=== PATIENT | female | born 1945 | race Caucasian/White ===

== ENCOUNTER 2018-06-08 11:45 | Day surgery (SDC) | payer MEDICARE, OTHER, SELFPAY ==
--- NOTE | 2018-06-05 14:42 | PCM.HP.BLA ---
History and Physical Date of Admission: 06/05/18 HISTORY AND PHYSICAL ? Sabine Hendricks V 1945 ? REFERRING PHYSICIAN: ??Melinda Blanco MD ? CHIEF COMPLAINT: ??Consult (Colonscopy consult) ? HPI: The patient is a 72 year old female referred for endoscopy. ?Sabine notes no history of colon complaints.??She denies any change in bowel habits, weight changes, blood in stools, black tarry stools or abdominal pain. ?She denies any family history of colon cancer. ? The patient?notes a past history of H. Pylori. ?She notes occasional GERD and some dysphagia, particularly with high-fiber foods. ?Denies nausea, vomiting, changes in bowel habits, blood in stools or dark stools. ? Sabine?has??undergone prior endoscopy, most recently was during a hospitalization in 2007 for suspected GI bleed. ?We do not currently have access to those records. ?Patient states this was shortly after she was diagnosed with and treated for H. Pylori infection. ?She denies any findings of polyps on colonoscopy. ? The patient is being seen by me today at the request of ?for my opinion and advice regarding screening colonoscopy.?Patient's past medical history is significant for history of sick sinus syndrome now with pacemaker in place, states last pacer check approximately 10 months ago. ?Follows with Dr. Cai at [place]. ?Other medical history significant for irritable bowel syndrome, fibromyalgia, polymyalgia rheumatica, degenerative disc disease. ?Patient denies any chest pain, shortness of breath or recent hospitalizations. ?Denies problems with sedation in the past. ? ? PAST?MEDICAL?HISTORY PAST MEDICAL HISTORY Diagnosis Date ? Acute gastritis without mention of hemorrhage ? ? Diverticulosis of colon (without mention of hemorrhage) ? ? Diverticulum of esophagus, acquired ? ? Hemorrhage of gastrointestinal tract, unspecified ? ? History of sick sinus syndrome ? ? doing well after pacemaker ? Internal hemorrhoids without mention of complication ? ? Irritable bowel syndrome ? ? Polymyalgia rheumatica (HCC) ? ? S/P placement of cardiac pacemaker ? ? 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 ? PAST?SURGICAL?HISTORY PAST SURGICAL HISTORY Procedure Laterality Date ? BACK SURGERY HX ? 2011 ? L3-L5 ? COLONOSCOP W/ OR W/O [facility] SPEC ? 06/21/2005 ? Colonoscopy ? COLONOSCOP W/ OR W/O [facility] SPEC ? 11/10/07 ? [facility] inpt ? EGD W/O [facility] SPECIMEN W/BX ? 11/10/07 ? [facility] inpt ???H-pylori is negative ? HEMORRHOIDECT INTER/EXTER SIMP ? 1977 ? PAST SURGICAL HISTORY OF ? 02/03/13 ? dual chamber pacemaker; [facility] Dr. Jc Zhao ? REMOVAL OF TONSILS,<12 Y/O ? 1961 ? Tonsillectomy ? ? CURRENT?MEDICATIONS ? Current Outpatient Prescriptions: acetaminophen(TYLENOL EXTRA STRENGTH 500 MG TAB) take as needed amitriptyline (ELAVIL) 10 mg tablet Take 1 tablet by mouth daily at bedtime. calcium carbonate 600 mg-cholecalciferol 200 units (CALCIUM 600 + D,3,) 600 mg(1,500mg) -200 unit tab Take 1 tablet by mouth twice daily. Cholecalciferol, Vitamin D3, 1,000 unit ORAL Cap Take 1 capsule by mouth once daily. fish oil/dha/epa(FISH OIL 1,200 MG-144 MG-216 MG CAP) Take one(1) tablet daily. gabapentin (NEURONTIN) 300 mg capsule Take 1 capsule by mouth daily at bedtime. per Dr. Ortiz HYDROcodone-acetaminophen (NORCO) 5-325 mg per tablet Take 1 tablet by mouth as needed for Pain. THERAPEUTIC MULTIVITAMIN TAB Take one(1) tablet daily. tiZANidine (ZANAFLEX) 2 mg tablet Take 1 tablet by mouth once daily. PER PAIN MGMT peg 3350-Electrolytes (GOLYTELY) 236-22.74-6.74 -5.86 gram suspension Take 4,000 mL by mouth one time only for 1 dose. ? No current facility-administered medications for this visit.? ? ALLERGIES:?Celebrex [Celecoxib]; Flurbiprofen; Meloxicam; Sulfa (Sulfonamide Antibiotics); Ultram [Tramadol Hcl] ? PERSONAL HISTORY:? SOCIAL?HISTORY Social History ??Marital status: ?Spouse name: Fish ?Years of education: ?Number of children: 1 ? Social History Main Topics ??Smoking status: Former Smoker ?Packs/day: 0.00 ?Years: 0.00 ?Alcohol use: Yes ?Comment: ocassional wine ? FAMILY HISTORY:? FAMILY?HISTORY FAMILY HISTORY Problem Relation Age of Onset ? Diabetes Mother ? ? Heart Mother ? ? other (arthritits) Brother ? ? REVIEW OF SYMPTOMS: ??The review of systems data was entered by the nurse and reviewed by me ? Nursing Notes: Vicki Gautam LPN ?03/13/2018 ?3:08 PM ?Signed REVIEW OF SYSTEMS: ?General:???The patient denies fatigue, denies weight loss, denies weight gain, denies feeling hot, and denies feelings of cold. ?Eyes: ?The patient denies glaucoma, denies eye injury/surgery, wears glasses or contacts. ?Ear/Nose/Throat: ?The patient denies allergies, denies hayfever, denies ear infections, and denies bloody noses. ?Cardiovascular: ?The patient denies chest pain, denies heart disease, denies high blood pressure,denies cardiac stent, denies prior heart attack, denies irregular heart beat, denies high cholesterol, ?denies poor circulation, denies heart failure, other cardiac issues, denies claudication, denies cold feet, denies peripheral arterial stent. ?Respiratory: ?The patient denies tuberculosis, denies pneumonia, denies frequent cough, denies pulmonary embolism, denies shortness of breath, and denies coughing up blood. ?Gastrointestinal: ?The patient NOTES difficulty swallowing, denies acid reflux, denies ulcers, denies vomiting, denies jaundice/hepatitis, denies gallbladder problems, denies black or tarry stools, NOTES hemorrhoids, NOTES bleeding from rectum, denies diverticulitis, NOTES constipation, denies diarrhea, denies loss of stool control, and denies hernias. ?Kidney/Bladder: ?The patient denies kidney stones, NOTES urine infections, and NOTES bloody urine. ?Skin: ?The patient denies a history of skin cancer, denies bleeding/changing moles, and denies a history of skin rash. ?Neurologic: ?The patient denies a history of epilepsy/convulsions, denies headaches, denies head/spinal injuries, and denies stroke/TIA. ?Psychiatric: ?The patient denies psychiatric medications, denies depression, and denies voices, denies substance abuse. ?Endocrine: ?The patient denies thyroid disorders, denies diabetes, and denies hormonal problems. ?Hematologic: ?The patient denies a history of bruising, denies bleeding, and denies anemia, denies blood clots. ?Infections: ?The patient NOTES a history of measles and mumps, denies rheumatic fever, and denies sexually transmitted diseases. ?Musculoskeletal: ?The patient NOTES back pain/injury, NOTES back problems, NOTES sciatica, denies knee/foot trouble, NOTES arthritis, or denies gout. ? ? When was patient's last Mammogram screening? 2016 ? ?Last Colonoscopy: ?2007 ? Vicki Gautam LPN? I have confirmed and edited as necessary, the PFSH and ROS obtained by others. ? ? PHYSICAL EXAMINATION: ? General: ?The patient is 72 year old female, well nourished, well hydrated in no acute distress. ?The patient is oriented to time, place, and person. ? VITALS:?Blood pressure 136/74, pulse 105, temperature 37.2 ?C (99 ?F), temperature source Temporal Artery, height 162.6 cm (5' 4), weight 76.6 kg (168 lb 12.8 oz), SpO2 97 %.?Body mass index is 28.97 kg/m?.? ? HEENT: ?Normal cephalic, ataumatic, pupils are equally round, sclera are anicteric, mucous membranes are moist, oropharynx is clear. ?Neck has no masses, asymmetry or lymphadenopathy. ? ? Respiratory: ?Clear to auscultation and percussion. ?Normal respiratory excursion and pattern. ? Cardiac: ?Examination is regular rate and rhythm. ? Abdominal exam: ?Soft, nontender, ?with no palpable masses. ?No hepatosplenomegaly. ?No palpable hernias. ? Rectal exam:?exam deferred ? Extremities: ?no clubbing, cyanosis or edema. ?No adenopathy. ? Other: ? LABORATORY VALUES: As Noted ? RADIOLOGIC STUDIES: ?As Noted ? ? Assessment ? IMPRESSION:?encounter for screening colonoscopy. ?History of H. Pylori, intermittent GERD and occasional dysphagia, consider EGD in addition to colonoscopy. ?Pacemaker in place ? PLAN:?I have reviewed my findings with Dr. Wilkins. Plan for upper and lower endoscopy with Monitored Anesthetic Care due to pacemaker. ??Discussed patient may need updated pacer check prior to procedure, will defer to anesthesia. ?We discussed the risks and benefits of the planned endoscopy. ?I have informed the patient that complications can occur including failure to complete the endoscopy and perforation. ?The patient had the opportunity to ask questions concerning the planned endoscopy. ?My staff has also explained the procedure to the patient in understandable terms and has given the patient printed material concerning the procedure. ?The patient freely consents to surgery. ? I plan to use golytely bowel preparation for endoscopy ? I plan for monitored anesthetic care. ? Diagnoses:?(Z12.11) Encounter for screening for malignant neoplasm of colon ?(primary encounter diagnosis) (Z98.890, ?Z87.19) History of rectal polypectomy (R13.10) Dysphagia, unspecified type (Z86.19) History of Helicobacter pylori infection (K21.9) Gastroesophageal reflux disease, esophagitis presence not specified (Z95.0) Pacemaker ? My findings have been communicated to ?via shared medical record. ?This note will be forwarded to Dr. Melinda Blanco MD. ?? Return to Clinic: The patient is instructed to follow-up with me?1 week post operatively. ? Merlyn Serrano PA-C
[2018-06-08 12:11] VITALS: BP 139/72; PULSE 92; RESP 16; TEMP 36.6; O2SAT 97; BMI 28.8
--- NOTE | 2018-06-08 12:45 | IMM_PTH ---
PATIENT: MARKOS MERCHANT V LOC: EN U#:[id number] AGE/SX: 73/F ROOM: RE06/08/[address]: Dr. Raul Wilkins MD : 1945 BED: DIS: 06/08/2018 SPEC #: [id number] RECD: 06/09/18 12:16 STATUS: JONE REKayla #: [id number] FRANCO: 06/08/18 12:[address]: Raul Wilkins DEPT: IMMUNOHISTOCHEMISTRY RECD BY: Evangelina Anaya ENTERED: 06/09/18 12:17 SP TYPE: IMMUNO OTHR DR: Dr. Melinda Blanco MD Tissues: A - Stomach, NOS Procedures: H Pylori (initial) PHYSICIAN & INSTITUTION [place] [address] SPECIMEN INFORMATION: Tissue Source: A - Antral biopsy Clinical Info: Dysphagia, anemia Specimen Number: [id number] CPT code: 45091 METHODOLOGY: Deparaffinized sections of prefer/formalin-fixed tissue or PAP/DQ stained slides are incubated with monoclonal/polyclonal antibodies/oligonucleotide probes. Localization is made via biotin free immunoperoxidase method. Appropriate controls are performed and reacted as expected. Results on target cell population are indicated in the following table: RESULTS: ANTIBODY / CLONE RESULT Block A H Pylori (polyclonal) negative These tests were developed and their performance characteristics determined by [facility]. They may not have been cleared or approved by the U.S. Food and Drug Administration. The FDA has determined that such clearance or approval is not necessary. INTERPRETATION: A. Antral biopsy: Negative for Helicobacter pylori organisms. SJ:bijan 06/10/18
--- NOTE | 2018-06-08 12:45 | EGD_PTH ---
PATIENT: MARKOS MERCHANT V LOC: EN U#:[id number] AGE/SX: 73/F ROOM: RE06/08/[address]: Dr. Raul Wilkins MD : 1945 BED: DIS: 06/08/2018 SPEC #: [id number] RECD: 06/08/18 17:10 STATUS: JONE SHANE #: [id number] FRANCO: 06/08/18 12:[address]: Raul Wilkins DEPT: SURGICAL PATHOLOGY RECD BY: Ko Sadler ENTERED: 06/09/18 07:53 SP TYPE: EGD BIOPSY OT DR: Dr. Melinda Blanco MD Tissues: A - Gastric mucous membrane B - Gastric mucous membrane C - Esophageal mucous membrane D - Transverse colon Procedures: Special Stain Group II Surgery Specimen Level IV Alcian Blue/PAS (control) HEADER OPERATION: [place] DIAGNOSIS: Dysphagia, anemia TISSUE SUBMITTED: A - Antral biopsy for histo and H. pylori, B - GE junction biopsy, C - Mid esophagus biopsy, D - Proximal transverse polyp biopsy MICROSCOPIC DIAGNOSIS A. Gastric antrum, biopsy: Mild chronic gastritis. See comment. B. Gastroesophageal junction, biopsy: Mild chronic inflammation. No evidence of intestinal metaplasia. See comment. C. Mid esophagus, biopsy: Fragments of benign squamous mucosa. No evidence of inflammation. See comment. D. Proximal transverse colon polyps, biopsy: Fragments of tubular adenoma. AM:bijan 06/10/18 COMMENT A. The results of immunohistochemistry for Helicobacter pylori will be reported separately ([id number]). B. Alcian blue/PAS stain with matched control supports the above diagnosis. C. Focal recent hemorrhage is noted within the mucosa. Clinical correlation is suggested. Case has been reviewed in consultation with Dr. Wynn who concurs with the above diagnosis. IDC:SJ MICROSCOPIC DESCRIPTION Slides are reviewed. GROSS DESCRIPTION A - Received in fixative is one container labeled with the patient's name and designated antral biopsy. The specimen consists of one irregular fragment of light espinosa soft tissue that measures 0.3 x 0.2 x 0.1 cm. The specimen is totally submitted in one cassette. B - Received in fixative is one container labeled with the patient's name and designated GE junction biopsy. The specimen consists of two irregular fragments of light espinosa soft tissue that in aggregate measure 0.5 x 0.2 x 0.1 cm. The specimen is totally submitted in one cassette. C - Received in fixative is one container labeled with the patient's name and designated mid esophagus biopsy. The specimen consists of one irregular fragment of light espinosa soft tissue that measures 0.3 x 0.2 x 0.1 cm. The specimen is totally submitted in one cassette. D - Received in fixative is one container labeled with the patient's name and designated proximal transverse polyp. The specimen consists of multiple irregular fragments of light espinosa soft tissue that in aggregate measure 1 x 0.3 x 0.1 cm. The specimen is totally submitted in one cassette. / SJ:rg 06/09/18 TC:3 CPT: 46263 x4, 29720
--- NOTE | 2018-06-08 14:58 | OP.ENDO_ITS ---
06/08/2018 Melinda Blanco [address] [place] [address] Re : Upper GI endoscopy procedure for Sabine Hendricks Dear Dr. Blanco This procedure was performed on Friday, June 08, 2018. My impressions and recommendations are as follows: Impressions : - Normal examined jejunum. - Normal. - Gastritis. Biopsied. - Normal lower third of esophagus. Biopsied. - Normal middle third of esophagus. Biopsied. Recommendations : - Return to physician itinerant teacher assistant in 1 week. - Continue present medications. My findings are described in the full procedure note, which is enclosed. If I can be of further assistance, please feel free to contact me at Doctor phone number(s): , Work: . Sincerely, Raul Wilkins MD 06/08/2018 2:58:16 PM This report has been signed electronically.
[2018-06-08 14:59] VITALS: BP 102/60; BP 139/62; PULSE 81; RESP 18; TEMP 36.8; O2SAT 97
[2018-06-08 15:00] VITALS: BP 139/62; BP 98/58; PULSE 77; RESP 18; O2SAT 99
--- NOTE | 2018-06-08 15:00 | OP.ENDO_ITS ---
06/08/2018 Melinda Blanco [address] [place] [address] Re : Colonoscopy procedure for Sabine Hendricks Dear Dr. Blanco This procedure was performed on Friday, June 08, 2018. My impressions and recommendations are as follows: Impressions : - One 4 mm polyp in the proximal transverse colon, removed with a cold biopsy forceps. Resected and retrieved. - The examination was otherwise normal. - The distal rectum and anal verge are normal on retroflexion view. Recommendations : - Discharge patient to home. - Resume previous diet. - Continue present medications. - Repeat colonoscopy for surveillance based on pathology results. - Return to physician environmental assistant in 1 week. My findings are described in the full procedure note, which is enclosed. If I can be of further assistance, please feel free to contact me at Doctor phone number(s): , Work: . Sincerely, Raul Wilkins MD 06/08/2018 2:59:51 PM This report has been signed electronically.
[2018-06-08 15:05] VITALS: BP 123/70; BP 139/62; PULSE 90; RESP 16; O2SAT 98
[2018-06-08 15:13] VITALS: BP 122/72; BP 139/62; PULSE 84; RESP 18; TEMP 36.2; O2SAT 99
[2018-06-08 15:49] VITALS: BP 139/62
== END 2018-06-08 15:50 | disposition home or self-care (01) ==
LOC: EN 11:46 → AC 11:49
PROVIDERS: Family Provider Internal Medicine; PCP Internal Medicine; Referring Provider Surgery; Visit Provider Surgery
PROC: 0DJD8ZZ Inspection of Lower Intestinal Tract, Via Natural or Artificial Opening Endoscopic (ICD-10-PCS; CPT 45378; principal; 2018-06-08 12:40)
DX: K29.50 Unspecified chronic gastritis without bleeding (principal); Z12.11 Encounter for screening for malignant neoplasm of colon; D12.3 Benign neoplasm of transverse colon; K21.9 Gastro-esophageal reflux disease without esophagitis; R13.10 Dysphagia, unspecified; Z87.19 Personal history of other diseases of the digestive system; Z86.19 Personal history of other infectious and parasitic diseases; I49.5 Sick sinus syndrome; I44.2 Atrioventricular block, complete; M79.7 Fibromyalgia; Z95.0 Presence of cardiac pacemaker; Z79.899 Other long term (current) drug therapy; Z87.891 Personal history of nicotine dependence
CPT/HCPCS: 43239; 45380; 88305; 88313; 88342; J7120